=== PATIENT | female | born 1960 | race African-American/Black ===

== ENCOUNTER 2017-04-27 09:40 | Emergency (ER) | payer MEDICAID ==
[~2017-04-27] VITALS: Ht 172.7 cm; Wt 70.0 kg
[~2017-04-27 09:40] MED LIST: NAPR220C15
[2017-04-27] MEDS ORDERED: HYDROCODONE/ACETAMINOPHEN 5/325MG TABLET PO ONE (10:45)
[2017-04-27 12:21] VITALS: BP 180/90
== END 2017-04-27 12:23 | disposition home or self-care (01) ==
LOC: ER 10:12
DX: S62.91XA Unspecified fracture of right hand, initial encounter for closed fracture (principal); S80.00XA Contusion of unspecified knee, initial encounter; R51 Headache; F12.10 Cannabis abuse, uncomplicated; F17.200 Nicotine dependence, unspecified, uncomplicated; V43.52XA Car driver injured in collision with other type car in traffic accident, initial encounter; Y93.89 Activity, other specified; Y99.8 Other external cause status; Y92.410 Unspecified street and highway as the place of occurrence of the external cause
CPT/HCPCS: 29125; 71010; 73130; 99284

== ENCOUNTER 2017-09-22 13:01 | Emergency (ER) | payer MEDICAID ==
[2017-09-22] MEDS ORDERED: ACETAMINOPHEN 500MG TABLET PO ONE (15:30)
[2017-09-22 15:52] VITALS: BP 162/94
== END 2017-09-22 15:54 | disposition home or self-care (01) ==
LOC: ER 13:01
DX: M79.641 Pain in right hand (principal); F17.200 Nicotine dependence, unspecified, uncomplicated; F12.10 Cannabis abuse, uncomplicated
CPT/HCPCS: 73110; 73130; 99284

== ENCOUNTER 2019-10-10 06:40 | Emergency (ER) | payer MEDICAID, OTHER ==
[~2019-10-10] VITALS: Ht 172.7 cm; Wt 65.9 kg
[2019-10-10] MEDS ORDERED: ACETAMINOPHEN WITH CODEINE 300/30MG TABLET PO ONE (07:15)
[2019-10-10 08:09] VITALS: BP 152/85
== END 2019-10-10 08:10 | disposition home or self-care (01) ==
LOC: ER 06:40
DX: M79.644 Pain in right finger(s) (principal); M79.631 Pain in right forearm; F12.10 Cannabis abuse, uncomplicated
CPT/HCPCS: 29125; 73130; 99283

== ENCOUNTER 2023-08-06 16:04 | Emergency (ER) | payer MEDICAID, OTHER ==
[~2023-08-06] VITALS: Ht 170.2 cm; Wt 79.0 kg
[2023-08-06 16:14] VITALS: O2SAT 99
[2023-08-06] MEDS: HYDROCODONE/ACETAMINOPHEN 5/325MG TABLET PO STA (20:13)
[2023-08-06] MEDS ORDERED: NAPR-681 PO (21:50)
[2023-08-06 22:47] VITALS: BP 189/112; PULSE 75; RESP 17; TEMP 98.3
== END 2023-08-06 22:52 | disposition home or self-care (01) ==
LOC: ER 16:04
DX: S00.93XA Contusion of unspecified part of head, initial encounter (principal); S09.90XA Unspecified injury of head, initial encounter; M54.9 Dorsalgia, unspecified; M25.552 Pain in left hip; F12.10 Cannabis abuse, uncomplicated; W18.39XA Other fall on same level, initial encounter; Y93.89 Activity, other specified; Y92.89 Other specified places as the place of occurrence of the external cause; Y99.8 Other external cause status
CPT/HCPCS: 72100; 73502; 99284